=== PATIENT | female | born 2000 | race Hispanic/Latino ===

== ENCOUNTER 2025-07-12 20:37 | Emergency (ER) | payer SELFPAY ==
[2025-07-12] MEDS ORDERED: Lidocaine 1% (PF) 30 ML VIAL ONE (20:51)
[2025-07-12] MEDS ORDERED: Bacitracin 1 PK ONE (21:32)
[2025-07-12] MEDS ORDERED: Boostrix 0.5 ML (Tdap) VIAL (>/=7 yrs of age) ONE (21:32)
== END 2025-07-12 22:01 | disposition home or self-care (01) ==
LOC: NAV ERS 20:37
DX: S61.412A Laceration without foreign body of left hand, initial encounter (principal); W26.0XXA Contact with knife, initial encounter
CPT/HCPCS: 12002; 90471; 90715